=== PATIENT | male | born 1950 | race Caucasian/White ===

== ENCOUNTER 2020-06-21 10:29 | Outpatient (CLI) | payer OTHER | END 2020-06-21 23:59 | disposition home or self-care (01) | LOC: RT 10:29 | PROVIDERS: ATTEND Orthopaedic Surgery | DX: J61 Pneumoconiosis due to asbestos and other mineral fibers (principal); M85.80 Other specified disorders of bone density and structure, unspecified site | CPT/HCPCS: 71046; 94010 ==